=== PATIENT | female | born 1995 | race Caucasian/White ===

== ENCOUNTER 2017-07-10 11:40 | Emergency (ER) | payer SELFPAY ==
[2017-07-10 11:57] VITALS: BP 128/83; PULSE 79; RESP 18; TEMP 98.8; O2SAT 100
--- NOTE | 2017-07-10 12:25 | RADRPT ---
EXAM DATE/TIME: 07/10/2017 12:12 [place] COMPARISON: No previous studies available for comparison. INDICATIONS : Right ankle pain. Impact to stairs. MEDICAL HISTORY : None. SURGICAL HISTORY : None. ENCOUNTER: Initial ACUITY: 1 day PAIN SCORE: 7/10 LOCATION: Right lateral posterior ankle FINDINGS: Three view exam was performed of the right ankle. The bony structures are in normal alignment. No e vidence of fracture, dislocation, or soft tissue swelling. The ankle mortise is intact. No radiopaq ue foreign bodies are seen. Bony mineralization is normal. CONCLUSION: No acute fracture. Osmani Cartwright MD on July 10, 2017 at 12:23 Board Certified Radiologist. This report was verified electronically.
--- NOTE | 2017-07-10 13:59 | PD ---
HPI Chief Complaint: Injury Time Seen by Provider: 13:39 Travel History International Travel<30 days: Yes Contact w/Intl Traveler<30days: Yes Name of Country Traveled to: [facility] Traveled to known affect area: No History of Present Illness HPI 22-year-old female presents to the emergency room for evaluation of right Achilles tendon pain for the past 2 days. Patient primarily speaks [place] and prefers to have her friend interpret for her. Patient states she hit her Achilles tendon against a stair and since then she has had dull, aching pain localized to the posterior aspect. Pain is worsened with range of motion and when she pushes on it. Improves at rest. She has not taken anything for her symptoms. She denies any paresthesias. No chronic medical conditions or daily medications. PFSH Past Medical History ?: Not Social History Tobacco Use: No Allergies-Medications (Allergen,Severity, Reaction): Coded Allergies: No Known Allergies (Unverified , 07/10/17) Review of Systems Except as stated in HPI: all other systems reviewed are Neg Physical Exam Narrative GENERAL: Well-nourished, well-developed female no acute distress. Afebrile. Ambulatory. SKIN: Focused skin assessment warm/dry. No erythema or ecchymosis. HEAD: Normocephalic. EYES: No scleral icterus. No injection or drainage. NECK: Supple, trachea midline. No JVD or lymphadenopathy. CARDIOVASCULAR: Regular rate and rhythm without murmurs, gallops, or rubs. RESPIRATORY: Breath sounds equal bilaterally. No accessory muscle use. MUSCULOSKELETAL: No cyanosis, or edema. 2+ dorsalis pedis pulse. Full range of motion. Achilles tendon intact. No calf tenderness. Full range of motion of the right lower extremity. Data Data Last Documented VS Vital Signs Date Time Temp Pulse Resp B/P (MAP) Pulse Ox O2 Delivery O2 Flow Rate FiO2 07/10/17 11:57 98.8 79 18 128/83 (98) 100 Orders Orders Ankle, Complete ([id number]) (07/10/17 ) [facility] Medical Decision Making Medical Screen Exam Complete: Yes Emergency Medical Condition: Yes Medical Record Reviewed: Yes Differential Diagnosis Tendon rupture, contusion, muscle spasm, strain Narrative Course 22-year-old female presents to the emergency room for evaluation of right Achilles tendon pain for the past 2 days. She struck her tendon against stairs. She has been ambulatory since then without difficulty. Physical exam reveals no edema, erythema, increased warmth, or loss of range of motion of the right ankle. Achilles tendon is intact. 2+ dorsalis pedis pulse. Patient is ambulatory in the ED. X-ray is negative. Likely contusion. Patient discharged with instructions and told to follow-up with a primary care physician or return for worsening symptoms. She understands and agrees to plan. Diagnosis Primary Impression: Ankle contusion Qualified Codes: S90.01XA - Contusion of right ankle, initial encounter Referrals: Primary Care Physician Additional Instructions: Rest and drink plenty of fluids. Take ibuprofen with food as directed, as needed for pain. Follow-up with a primary care physician. Return to the emergency room for worsening symptoms. Disposition: 01 DISCHARGE HOME Condition: Stable Rosemarie Jones Jul 10, 2017 13:59
== END 2017-07-10 14:04 | disposition home or self-care (01) ==
LOC: NEPK 11:40
DX: S90.01XA Contusion of right ankle, initial encounter (principal); W22.09XA Striking against other stationary object, initial encounter
CPT/HCPCS: 73610; 99283